=== PATIENT | female | born 1945 | race Caucasian/White ===

== ENCOUNTER → 2021-05-25 06:51 | Outpatient (CLI) | payer MEDICARE, OTHER, SELFPAY ==
--- NOTE | 2021-05-25 10:23 | STRESSREP_ITS ---
Stress Test Report Pharmacologic myocardial perfusion stress test. 75-year-old lady with a history of peripheral vascular disease. Stress protocol: Resting EKG demonstrates normal sinus rhythm with a rate of 77 bpm. Resting blood pressure is 152/62 mmHg. 0.4 mg of regadenoson was infused per usual protocol followed by rapid intravenous saline flush injection continuous EKG monitoring was performed. The patient maintained sinus rhythm with short paroxysms of atrial fibrillation noted. The maximum heart rate attained was 117 bpm which was 79% of max inf ected heart rate the maximum workload was 1 metabolic equivalent. At rest there were no ST or T wave changes noted to suggest abnormal flow reserve and at peak infusion nonspecific ST changes were noted with did not meet the criteria for ischemia. No clinical angina was noted. Perfusion SPECT analysis: Review of the stress images demonstrate normal uptake of tracer noted in all areas of the myocardium. The resting images similarly demonstrate normal uptake of tracer noted in all areas of the myocardium. No areas of reversibility are noted to suggest ischemia and no previous infarct is noted. Gated SPECT analysis: The gated ejection fraction is 82%. Conclusion: Normal pharmacologic myocardial perfusion stress test. Paroxysms of atrial fibrillation noted. Preserved ejection fraction.
== END ==
PROVIDERS: PCP Family Medicine; Referring Provider Internal Medicine Cardiovascular Disease; Visit Provider Internal Medicine Cardiovascular Disease
DX: Z01.810 Encounter for preprocedural cardiovascular examination (principal); I25.10 Atherosclerotic heart disease of native coronary artery without angina pectoris
CPT/HCPCS: 78452; 93017; 93306; A9500; A4216; J2785

== ENCOUNTER → 2023-02-17 | Outpatient (CLI) | payer MEDICARE, OTHER, SELFPAY ==
--- NOTE | 2023-02-17 08:56 | ART_ITS ---
Reason For Study: Stricture of artery Procedure A bilateral lower extremity continuous wave Doppler with analog waveform analysis and ankle brachial indexes. Left Segmental Pressures Left brachial= 167mmHg. Left posterior tibial artery = 92mmHg. Left dorsalis pedis artery = 68mmHg. Left digit = 69 mmHg. The left dorsalis pedis waveforms are monophasic. The left posterior tibial artery waveforms are biphasic. Right Segmental Pressures Right brachial= 166mmHg. Right posterior tibial artery = 60mmHg. Right dorsalis pedis artery = 54mmHg. Right digit = 42 mmHg. The right dorsalis pedis waveforms are monophasic. The right posterior tibial artery waveforms are monophasic. Indices The right ankle brachial index by the dorsalis pedis is 0.32. The right ankle brachial index by the posterior tibial artery is 0.36. The right digital-brachial index is 0.25. The left ankle brachial index by the dorsalis pedis is 0.41. The left ankle brachial index by the posterior tibial artery is 0.55. The left digital-brachial index is 0.41. . Preliminary report given to Cinthya. VL/Ankle Brachial Index Interpretation Summary Right severe occlussive disease monophasic and SOFIA 0.33. LEft moderate with bip hasic and SOFIA 0.55. Ordering Physician: Nilo Dukes Referring Physician: Paige Quezada Performed By: Jessica Williamson RVT
--- NOTE | 2023-02-17 08:56 | AAVD_ITS ---
Reason For Study: S/P Left Iliac/STUDY LEAD angioplasty Aorta Measurements Aorta Doppler Measurements Proximal aorta measures1.04 x 1.03cm. in cross- Peak systolic flow velocities within the proximal sectional axis. aorta measure 94.1 cm/sec. Proximal aorta measures1.05cm. in longitudinal Peak systolic flow velocities within the mid aorta axis. measure 82.7 cm/sec. Mid aorta measures1.23 x 1.19cm. in cross- Peak systolic flow velocities within the distal sectional axis. aorta measure 144.8 cm/sec. Mid aorta measures1.17cm. in longitudinal axis. Distal aorta measures1.01 x 1.01cm. in cross- sectional axis. Distal aorta measures1.03cm. in longitudinal axis. Left Iliac Artery Left iliac artery measures 0.71 x 0.70 cm. in the cross-sectional axis. Left iliac artery measures 0.68 cm. in the longitudinal axis. Peak systolic velocity in the left iliac artery measures 324.4 cm/sec. Right Iliac Artery Right iliac artery measures 0.43 x 0.47 cm. in the cross-sectional axis. Right iliac artery measures 0.40 cm. in the longitudinal axis. Peak systolic velocity in the right iliac artery measures 80.1 cm/sec. Procedure Aorta IVC Iliac vasculature or bypass grafts [id number]. Technically difficult study due to calcification causing acoustic shawdowing. Exam performed in department. VL/Abd Aortic/IVC Duplex scan Interpretation Summary Difficult exam with increased calcifications with severe left DANIA stenosis. Ordering Physician: Nilo Dukes Referring Physician: Paige Quezada Performed By: Jessica Williamson RVT
== END | disposition home or self-care (01) ==
LOC: CVS 08:53
PROVIDERS: PCP Family Medicine; Referring Provider Surgery Vascular Surgery; Visit Provider Surgery Vascular Surgery
DX: I71.43 Infrarenal abdominal aortic aneurysm, without rupture (principal); I77.1 Stricture of artery; I70.213 Atherosclerosis of native arteries of extremities with intermittent claudication, bilateral legs; I10 Essential (primary) hypertension
CPT/HCPCS: 93922; 93978

== ENCOUNTER → 2024-03-13 | Outpatient (CLI) | payer MEDICARE, OTHER, SELFPAY ==
--- NOTE | 2024-03-13 09:02 | AAVD_ITS ---
Reason For Study: Atherosclerosis Aorta Measurements Aorta Doppler Measurements Proximal aorta measures1.06 x 1.08cm. in cross- Peak systolic flow velocities within the proximal sectional axis. aorta measure 75.9 cm/sec. Proximal aorta measures1.06cm. in longitudinal Peak systolic flow velocities within the mid aorta axis. measure 61.4 cm/sec. Mid aorta measures1.01 x 1.00cm. in cross- Peak systolic flow velocities within the distal sectional axis. aorta measure 128.5 cm/sec. Mid aorta measures1.01cm. in longitudinal axis. Distal aorta measures0.73 x 0.73cm. in cross- sectional axis. Distal aorta measures0.70cm. in longitudinal axis. Acoustic shadowing noted throught Aorta and Iliac arterties. Left Iliac Artery Left iliac artery measures 0.44 x 0.47 cm. in the cross-sectional axis. Left iliac artery measures 0.67 cm. in the longitudinal axis. Peak systolic velocity in the left iliac artery measures 343 cm/sec. Right Iliac Artery Right iliac artery measures 0.44 x 0.45 cm. in the cross-sectional axis. Right iliac artery measures 0.43 cm. in the longitudinal axis. Peak systolic velocity in the right iliac artery measures 25.4 cm/sec. Procedure Aorta IVC Iliac vasculature or bypass grafts [id number]. Exam performed in department. VL/Abd Aortic/IVC Duplex scan Interpretation Summary Left DANIA severe stenosis otherwise patent throughout. Ordering Physician: Nilo Dukes Referring Physician: Paige Quezada Performed By: Jessica Williamson RVT
--- NOTE | 2024-03-13 09:02 | ART_ITS ---
Reason For Study: Atherosclerosis Procedure A bilateral lower extremity continuous wave Doppler with analog waveform analysis and ankle brachial indexes. Left Segmental Pressures Left brachial= 153mmHg. Left posterior tibial artery = 93mmHg. Left dorsalis pedis artery = 85mmHg. Left digit = 57 mmHg. The left dorsalis pedis waveforms are biphasic. The left posterior tibial artery waveforms are biphasic. Right Segmental Pressures Right brachial= 155mmHg. Right posterior tibial artery = 55mmHg. Right dorsalis pedis artery = 59mmHg. Right digit = 35 mmHg. The right dorsalis pedis waveforms are monophasic. The right posterior tibial artery waveforms are monophasic. Indices The right ankle brachial index by the dorsalis pedis is 0.38. The right ankle brachial index by the posterior tibial artery is 0.35. The right digital-brachial index is 0.23. The left ankle brachial index by the dorsalis pedis is 0.55. The left ankle brachial index by the posterior tibial artery is 0.60. The left digital-brachial index is 0.37. VL/Ankle Brachial Index Interpretation Summary The right resting ankle-brachial index appears severely abnormal. The left rest ing ankle-brachial index appears moderately abnormal. Ordering Physician: Nilo Dukes Referring Physician: Paige Quezada Performed By: Jessica Williamson RVT
== END | disposition home or self-care (01) ==
LOC: CVS 08:59
PROVIDERS: PCP Family Medicine; Referring Provider Surgery Vascular Surgery; Visit Provider Surgery Vascular Surgery
DX: Z48.812 Encounter for surgical aftercare following surgery on the circulatory system (principal); I71.43 Infrarenal abdominal aortic aneurysm, without rupture; I77.1 Stricture of artery; I70.213 Atherosclerosis of native arteries of extremities with intermittent claudication, bilateral legs; I10 Essential (primary) hypertension
CPT/HCPCS: 93922; 93978

== ENCOUNTER → 2024-06-19 | Outpatient (CLI) | payer MEDICARE, OTHER, SELFPAY ==
--- NOTE | 2024-06-19 08:13 | CT_ITS ---
STUDY: CTA OF THE ABDOMINAL AORTA AND BILATERAL LOWER EXTREMITIES REASON FOR EXAM: Female, 78 years old. Atherosclerosis of pala arteries of extremities. Right upper thigh pain. RADIATION DOSAGE (If Supplied By Facility): CTDIvol = ( 5.52 ) mGy, DLP = ( 1013.79 ) mGycm TECHNIQUE: Axial CT angiography multi-detector data acquisition was obtained from the dome of the liver to the level of the ankles following intravenous administration of IV 100mL Isovue-370. Axial images and MIP images were reconstructed from the axial data set. Post-processing of the angiographic images was performed, with multiplanar reformation and 3D reconstruction. Individualized dose optimization techniques were used for this CT. TECHNICAL QUALITY: Good COMPARISON: None. Descriptors of Narrowing: None (0%) Mild (< 50%) Moderate (50-70%) Severe (70-90%) Subtotal/Total Occlusion (90-100%) Non-Evaluable (technically non-diagnostic FINDINGS: Increased markings with areas of confluence in the bullous formation in the lower lobes suggestive of chronic interstitial fibrosis. Coronary artery calcification. Fatty infiltration of the liver. Small gallstones are seen along the dependent portion of the gallbladder lumen. Abdominal aorta: Diffuse atherosclerotic plaque formation of the abdominal aorta. No aneurysm is seen. Celiac and superior mesenteric arteries: Plaque formation at the origin of the celiac artery as well as the superior mesenteric artery. Inferior mesenteric artery: No demonstrated narrowing. Right renal artery(arteries): Calcific plaques seen at the origin of the right renal artery. Left renal artery(arteries): Calcific plaques at the origin of the left renal artery. Right common iliac artery: Marked degree of a calcific plaques with evidence of a luminal narrowing and high-grade stenosis. Right external iliac artery: Multiple levels of stenotic calcific plaques. Poor flow. Right internal iliac artery: No demonstrated narrowing. Left common iliac artery: Nonstenotic calcific plaques. There appears to be a stent in the left common iliac artery. Left external iliac artery: No significant plaque formation is seen. Left internal iliac artery: No demonstrated narrowing. RIGHT LOWER EXTREMITY Right common femoral artery: Stenotic calcific plaques. Right profundus femoris: No demonstrated narrowing. Right superficial femoral: Multiple calcific plaques with areas of stenosis throughout its length. Right popliteal artery: Calcific plaques although patent. Right tibioperoneal trunk: No demonstrated narrowing. Right anterior tibial artery: No demonstrated narrowing. Right posterior tibial artery: No demonstrated narrowing. Right peroneal artery: No demonstrated narrowing. LEFT LOWER EXTREMITY Left common femoral artery: No demonstrated narrowing. Left profundus femoris: No demonstrated narrowing. Left superficial femoral: Focal occlusion of the distal superficial femoral artery at the origin of the popliteal artery. Left popliteal artery: Calcific plaques throughout the popliteal artery. Left tibioperoneal trunk: No demonstrated narrowing. Left anterior tibial artery: No demonstrated narrowing. Left posterior tibial artery: No demonstrated narrowing. Left peroneal artery: No demonstrated narrowing. CT/CTA Abd w/Runoff W/WO Contrast IMPRESSION: Tight stenosis at the right common iliac and external iliac arteries with diffuse plaque formation throughout the superficial femoral arteries bilaterally worse on the right side. Focal occlusion of the distal left superficial femoral artery. Three-vessel runoff noted in both lower extremities. Electronically Signed: Arash Ferrer MD at 12:45 EST ,
== END | disposition home or self-care (01) ==
LOC: CT 08:09
PROVIDERS: PCP Family Medicine; Referring Provider Surgery Vascular Surgery; Visit Provider Surgery Vascular Surgery
DX: I71.43 Infrarenal abdominal aortic aneurysm, without rupture (principal); E11.9 Type 2 diabetes mellitus without complications; I77.1 Stricture of artery; I70.213 Atherosclerosis of native arteries of extremities with intermittent claudication, bilateral legs; I10 Essential (primary) hypertension; I65.23 Occlusion and stenosis of bilateral carotid arteries; E78.00 Pure hypercholesterolemia, unspecified
CPT/HCPCS: 75635; Q9967

== ENCOUNTER → 2024-11-13 | Outpatient (CLI) | payer MEDICARE, OTHER, SELFPAY | END | disposition home or self-care (01) | LOC: PSN 11:50 | PROVIDERS: PCP Family Medicine; Referring Provider Physician Assistant Medical; Visit Provider Physician Assistant Medical | DX: I48.0 Paroxysmal atrial fibrillation (principal) | CPT/HCPCS: 93225; 93226 ==

== ENCOUNTER → 2024-11-26 | Outpatient (CLI) | payer MEDICARE, OTHER, SELFPAY ==
--- NOTE | 2024-11-26 10:53 | ECHOD_ITS ---
Reason For Study Reason For Study: AFIB Procedure This was a 2D Doppler, Color Flow transthoracic echocardiogram. Exam performed in department. Left Ventricle Normal LV size. Left ventricular systolic function is normal. The left ventricular ejection fraction is 65 %. No regional wall motion abnormalities noted. Right Ventricle Normal RV size. Normal systolic function. Atria Normal left atrium. Normal right atrium. Mitral Valve Normal mitral valve. Tricuspid Valve Normal tricuspid valve. Aortic Valve Trisinus/trileaflet aortic valve. Pulmonic Valve Normal pulmonic valve. Great Vessels Normal aortic root. The pulmonary artery is normal size. Inferior vena cava collapse with respiration. Pericardium/Pleural No pericardial effusion. MMode/2D Measurements & Calculations LVIDd: 4.1 cm IVSd: 1.1 cm LVOT diam: 1.8 cm LVIDs: 2.2 cm LVPWd: 1.4 cm LVOT area: 2.4 cm2 FS: 44.9 % Ao root diam: 2.9 cm LAV(MOD-sp4): 33.8 ml LVAd ap4: 20.0 cm2 LVLd ap4: 7.0 cm EDV(MOD-sp4): 47.4 ml EDV(sp4-el): 48.7 ml LVAs ap4: 10.9 cm2 LVLs ap4: 5.8 cm ESV(MOD-sp4): 19.0 ml ESV(sp4-el): 17.4 ml EF(MOD-sp4): 59.9 % EF(sp4-el): 64.2 % SV(MOD-sp4): 28.4 ml SV(sp4-el): 31.3 ml LA A4 area: 14.8 cm2 SI(MOD-sp4): 16.8 ml/m2 LA dimension(2D): 3.4 cm RA A4 area: 10.0 cm2 Time Measurements MV dec time: 0.20 sec Doppler Measurements & Calculations MV E max memo: 86.8 cm/sec MV V2 max: 121.5 cm/sec MV dec slope: 448.8 cm/sec2 MV A max memo: 77.2 cm/sec MV max P.9 mmHg MV E/A: 1.1 MV V2 mean: 69.5 cm/sec MV mean P.2 mmHg MV V2 VTI: 39.5 cm MVA(VTI): 2.0 cm2 Ao V2 max: 157.7 cm/sec LV V1 max: 117.8 cm/sec SV(LVOT): 78.2 ml Ao max P.9 mmHg LV V1 max P.6 mmHg Ao V2 mean: 107.3 cm/sec LV V1 mean P.4 mmHg Ao mean P.2 mmHg LV V1 mean: 88.0 cm/sec Ao V2 VTI: 39.8 cm LV V1 VTI: 32.0 cm AV (velocity ratio): 0.80 AYDEN(I,D): 2.0 cm2 AYDEN(V,D): 1.8 cm2 PA V2 max: 113.6 cm/sec PA V2 mean: 79.7 cm/sec ECHO/Echo Complete Interpretation Summary Normal LV size. Left ventricular systolic function is normal. No regional wall motion abnormalities noted. The left ventricular ejection fraction is 65 %. Ordering Physician: Cinthya Sparks Referring Physician: Cinthya Sparks Performed By: Melba Cooper RCS
== END | disposition home or self-care (01) ==
LOC: CVS 10:52
PROVIDERS: PCP Family Medicine; Referring Provider Physician Assistant Medical; Visit Provider Physician Assistant Medical
DX: R00.2 Palpitations (principal); I48.92 Unspecified atrial flutter
CPT/HCPCS: 93306